=== PATIENT | male | born 1980 | race Caucasian/White ===

== ENCOUNTER → 2023-10-29 | Outpatient (REF) | payer OTHER ==
[~2023-10-29] MED LIST: IBUP-1022 PO
[2023-10-29 14:31] LABS: HEMATOCRIT 57.8 % (42.0-52.0); HEMOGLOBIN 19.3 g/dl (13.5-17.5); MEAN CORPUSCULAR HEMOGLOBIN 30.3 pg (27.0-33.0); MEAN CORPUSCULAR HGB CONC 33.4 g/dl (32.0-36.5); MEAN CORPUSCULAR VOLUME 90.6 fl (80.0-96.0); PLATELET COUNT, AUTOMATED 266 10^3/uL (150-450); RED BLOOD COUNT 6.38 10^6/uL (4.30-6.10); WHITE BLOOD COUNT 8.2 10^3/uL (4.0-10.0)
[2023-10-29 14:39] LABS: CREATININE FOR GFR 1.55 MG/DL (0.70-1.30); GLOMERULAR FILTRATION RATE 52.1 (>60); POTASSIUM SERUM 5.2 MMOL/L (3.5-5.1)
== END ==
LOC: M LAB REF 12:57
PROVIDERS: ATTEND Nurse Practitioner Family
DX: Z01.818 Encounter for other preprocedural examination (principal)

== ENCOUNTER → 2023-11-03 | Outpatient (REF) | payer OTHER ==
[2023-11-03 12:16] LABS: HEMATOCRIT 57.4 % (42.0-52.0); HEMOGLOBIN 19.2 g/dl (13.5-17.5); MEAN CORPUSCULAR HEMOGLOBIN 30.6 pg (27.0-33.0); MEAN CORPUSCULAR HGB CONC 33.4 g/dl (32.0-36.5); MEAN CORPUSCULAR VOLUME 91.5 fl (80.0-96.0); PLATELET COUNT, AUTOMATED 248 10^3/uL (150-450); RED BLOOD COUNT 6.27 10^6/uL (4.30-6.10); WHITE BLOOD COUNT 6.9 10^3/uL (4.0-10.0)
[2023-11-03 12:22] LABS: CREATININE FOR GFR 1.52 MG/DL (0.70-1.30); GLOMERULAR FILTRATION RATE 53.3 (>60); POTASSIUM SERUM 4.8 MMOL/L (3.5-5.1)
== END ==
LOC: M LAB REF 10:17
PROVIDERS: ATTEND Family Medicine
DX: Z01.818 Encounter for other preprocedural examination (principal)

== ENCOUNTER 2023-11-05 08:31 | Day surgery (SDC) | payer OTHER ==
[~2023-11-05] VITALS: Ht 172.7 cm; Wt 98.5 kg
[~2023-11-05 08:31] MED LIST changes: +ceFAZolin SOD 2 GM in IV 1 EA IV ONE
[2023-11-05] MEDS ORDERED: LR 1,000 ML IV SCH (08:40)
[2023-11-05] MEDS ORDERED: propofoL 200 MG/20 ML VIAL As Ordered ONE (09:22)
[2023-11-05] MEDS ORDERED: LIDOCAINE 2% 100MG/5ML SDV (FOR ANES.) As Ordered ONE (09:22)
[2023-11-05] MEDS ORDERED: MIDAZOLAM INJ 2MG/2ML VIAL As Ordered ONE (09:22)
[2023-11-05] MEDS ORDERED: fentaNYL 100 MCG/2 ML INJECTION As Ordered ONE ×2 (09:22→10:45)
[2023-11-05] MEDS ORDERED: ONDANSETRON 4MG 2ML VIAL As Ordered ONE (09:23)
[2023-11-05] MEDS ORDERED: BACITRACIN OINTMENT 30GM TUBE As Ordered ONE (09:59)
[2023-11-05] MEDS ORDERED: LIDOCAINE 1% SDV 30ML VIAL As Ordered ONE (09:59)
[2023-11-05] MEDS ORDERED: OXYC1TAB23 PO (10:32)
[2023-11-05] MEDS ORDERED: ACETAMINOPHEN 1000MG 100ML IV BAG As Ordered ONE (10:38)
[2023-11-05] MEDS ORDERED: fentaNYL 100 MCG/2 ML INJECTION IV PRN (11:30)
[2023-11-05] MEDS ORDERED: oxyCODONE 5MG TAB PO PRN (11:30)
[2023-11-05] MEDS ORDERED: HYDROMORPHONE HCL 0.5 MG/ 0.5 ML SYRINGE IV PRN (11:30)
[2023-11-05] MEDS ORDERED: ONDANSETRON 4MG 2ML VIAL IV PRN (11:30)
[2023-11-05] MEDS ORDERED: CEPH500C PO (12:20)
[2023-11-05 12:25] VITALS: BP 141/67
[2023-11-05] MEDS ORDERED: PERCOCET 5MG/325MG TAB PO PRN (12:50)
[2023-11-05 13:10] VITALS: TEMP 98.2; O2SAT 97
== END 2023-11-05 13:20 | disposition home or self-care (01) ==
LOC: M SDC 08:31
PROVIDERS: ATTEND Urology
DX: Q55.22 Retractile testis (principal); Z30.2 Encounter for sterilization; Z85.46 Personal history of malignant neoplasm of prostate
CPT/HCPCS: 54640; 55250; 88302; J0131; J0665; J0690; J1100; J2250; J2405; J3010

== ENCOUNTER → 2024-11-23 | Outpatient (CLI) | payer OTHER ==
[~2024-11-23] MED LIST changes: +CEPH500C PO; +ISOVUE-370 76% 100ML VIAL As Ordered ONE; +OXYC1TAB23 PO; -ceFAZolin SOD 2 GM in IV 1 EA IV ONE
== END ==
LOC: M RAD 14:54
PROVIDERS: ATTEND Urology
DX: R10.31 Right lower quadrant pain (principal); K76.89 Other specified diseases of liver
CPT/HCPCS: 74178; Q9967

== ENCOUNTER 2025-09-16 17:59 | Emergency (ER) | payer OTHER ==
[~2025-09-16] VITALS: Ht 170.2 cm; Wt 98.2 kg
[~2025-09-16 17:59] MED LIST changes: -IBUP-1022 PO; +IBUP600T42 PO; -ISOVUE-370 76% 100ML VIAL As Ordered ONE
[2025-09-16 18:32] LABS: KETONE, URINE AUTO RFX NEGATIVE (NEGATIVE); LEUKOCYTE ESTERASE UR AUTO RFX NEGATIVE (NEGATIVE); MUCUS, URINE RFX SMALL (NEGATIVE); NITRITE, URINE AUTO RFX NEGATIVE (NEGATIVE); RBC, URINE AUTO RFX 0 /HPF (0-3); SQUAM EPITHELIAL CELL UR AURFX 0 /HPF (0-6); WBC, URINE AUTO RFX 0 /HPF (0-3)
[2025-09-16] MEDS: ONDANSETRON 4MG/2ML VIAL IV ONE ×2 (18:35→20:05)
[2025-09-16] MEDS: MORPHINE 4 MG/ML 1 ML VIAL IV ONE (18:35)
[2025-09-16] MEDS ORDERED: ISOVUE-370 76% 100 ML VIAL As Ordered ONE (18:47)
[2025-09-16] MEDS: KETOROLAC 30 MG/ML 1 ML VIAL IV ONE (18:50)
[2025-09-16 18:56] LABS: BASO # 0.1 10^3/uL (0.0-0.2); BASO % 0.7 % (0.0-1.0); EOS # 0.1 10^3/uL (0.0-0.5); EOS % 0.6 % (0.0-3.0); LYMPH # 1.4 10^3/uL (1.5-5.0); LYMPH % 12.7 % (24.0-44.0); MONO # 0.9 10^3/uL (0.0-0.8); MONO % 7.9 % (2.0-8.0); NEUTROPHILS # 8.4 10^3/uL (1.5-8.5); NEUTROPHILS % 77.6 % (36.0-66.0); PLATELET COUNT, AUTOMATED 294 10^3/uL (150-450)
[2025-09-16] MEDS: HYDROMORPHONE HCL 0.5 MG/0.5 ML SYRINGE IV ONE ×3 (19:07→20:05)
[2025-09-16 19:22] LABS: ALT/SGPT 37.0 U/L (7.0-40); AST/SGOT 29.0 U/L (<34); CALCIUM LEVEL 10.4 MG/DL (8.5-10.1); CARBON DIOXIDE LEVEL 29.0 MMOL/L (20-31); CHLORIDE LEVEL 100.0 MMOL/L (98-107); CREATININE FOR GFR 1.47 MG/DL (0.70-1.30); GLOMERULAR FILTRATION RATE 59.2 (>60); POTASSIUM SERUM 4.7 MMOL/L (3.5-5.1); SODIUM LEVEL 139.0 MMOL/L (136-145)
[2025-09-16] MEDS: NS (Normal Saline) 0.9% 1,000 ML IV ONE (20:00)
[2025-09-16] MEDS: FLEET ENEMA PR ONE (20:10)
[2025-09-16 20:47] VITALS: BP 175/78; TEMP 98.1; O2SAT 96
[2025-09-16 21:29] LABS: MAGNESIUM LEVEL 1.5 MG/DL (1.8-2.4)
[2025-09-16] MEDS: MAG SULF 1GM/100ML (MAG RUN) 1 GM in IV 1 EA IV ONE (23:12)
== END 2025-09-17 00:16 | disposition home or self-care (01) ==
LOC: M ED 17:59
DX: K56.0 Paralytic ileus (principal); E86.0 Dehydration; E83.42 Hypomagnesemia; K76.0 Fatty (change of) liver, not elsewhere classified; Z79.1 Long term (current) use of non-steroidal anti-inflammatories (NSAID); Z79.2 Long term (current) use of antibiotics; Z79.899 Other long term (current) drug therapy
CPT/HCPCS: 71275; 74174; 80047; 80048; 80076; 81001; 83605; 83690; 83735; 85025; 96361; 96365; 96375; 96376; 99284; J1171; J1885; J2405; J3475; Q9967

== ENCOUNTER 2025-09-28 11:09 | Day surgery (SDC) | payer OTHER ==
[~2025-09-28] VITALS: Ht 170.2 cm; Wt 96.3 kg
[2025-09-28] MEDS ORDERED: LIDOCAINE 2% 100 MG/5 ML SDV (FOR ANES.) As Ordered ONE (11:51)
[2025-09-28 12:32] VITALS: TEMP 98.7
[2025-09-28 12:46] VITALS: BP 134/85; O2SAT 95
== END 2025-09-28 12:56 | disposition home or self-care (01) ==
LOC: M OPP 11:09
PROVIDERS: ATTEND Surgery
DX: R19.4 Change in bowel habit (principal); R93.3 Abnormal findings on diagnostic imaging of other parts of digestive tract; Z79.899 Other long term (current) drug therapy